=== PATIENT | male | born 1980 | race Caucasian/White ===

== ENCOUNTER 2018-12-20 20:23 | Emergency (ER) | payer MEDICAID ==
[~2018-12-20] VITALS: Ht 167.6 cm; Wt 75.0 kg
[2018-12-20] MEDS ORDERED: CLINDAMYCIN 600 MG in DEXTROSE 5% WATER 50 ML IV ONE (21:15)
[2018-12-20] MEDS ORDERED: KETOROLAC 30MG/ML VIAL IV ONE (21:30)
[2018-12-20] MEDS ORDERED: HYDROCODONE/ACETAMINOPHEN 5/325MG TABLET PO ONE (21:30)
[2018-12-20] MEDS ORDERED: CLINDAMYCIN 600 MG in DEXTROSE 5% WATER 50 ML IV NR (22:00)
[2018-12-20 23:34] VITALS: BP 97/59
== END 2018-12-20 23:49 | disposition home or self-care (01) ==
LOC: ER 20:23
DX: T25.112A Burn of first degree of left ankle, initial encounter (principal); T79.8XXA Other early complications of trauma, initial encounter; L03.116 Cellulitis of left lower limb; X19.XXXA Contact with other heat and hot substances, initial encounter; Y93.89 Activity, other specified; Y92.018 Other place in single-family (private) house as the place of occurrence of the external cause
CPT/HCPCS: 96365; 96375; 99283; J1885; J3490; J7060; Z7610

== ENCOUNTER 2021-04-10 08:13 | Emergency (ER) | payer MEDICAID ==
[~2021-04-10] VITALS: Ht 167.6 cm; Wt 77.0 kg
[2021-04-10] MEDS ORDERED: IBUPROFEN 600MG TABLET PO ONE (08:45)
[2021-04-10] MEDS ORDERED: NAP5EC MT (09:27)
[2021-04-10 10:33] VITALS: BP 125/79
== END 2021-04-10 10:39 | disposition home or self-care (01) ==
LOC: ER 08:13
DX: S80.02XA Contusion of left knee, initial encounter (principal); F12.10 Cannabis abuse, uncomplicated; X58.XXXA Exposure to other specified factors, initial encounter; Y93.89 Activity, other specified; Y92.89 Other specified places as the place of occurrence of the external cause; Y99.8 Other external cause status
CPT/HCPCS: 73562; 99283

== ENCOUNTER 2021-04-14 08:41 | Emergency (ER) | payer MEDICAID ==
[~2021-04-14] VITALS: Ht 167.6 cm; Wt 77.0 kg
[~2021-04-14 08:41] MED LIST: NAP5EC MT
[2021-04-14 09:23] VITALS: BP 125/76
== END 2021-04-14 09:24 | disposition home or self-care (01) ==
LOC: ER 08:41
DX: T18.9XXA Foreign body of alimentary tract, part unspecified, initial encounter (principal); X58.XXXA Exposure to other specified factors, initial encounter; Y93.89 Activity, other specified; Y92.89 Other specified places as the place of occurrence of the external cause; Y99.8 Other external cause status
CPT/HCPCS: 99281

== ENCOUNTER 2021-11-18 06:58 | Emergency (ER) | payer MEDICAID ==
[~2021-11-18] VITALS: Ht 167.6 cm; Wt 72.3 kg
[2021-11-18 07:02] VITALS: BP 160/107
[2021-11-18] MEDS ORDERED: MORPHINE SULFATE 4 MG/ML CPJ (NOT FOR IM USE) IV STA (09:58)
[2021-11-18] MEDS ORDERED: FAMOTIDINE 20MG/2ML VIAL IV STA (09:58)
[2021-11-18] MEDS ORDERED: ONDANSETRON HCL 4MG/2ML INJ IV STA (09:58)
[2021-11-18] MEDS ORDERED: SODIUM CHLORIDE 0.9% 1,000 ML IV ONE (10:00)
[2021-11-18 11:14] LABS: BASOPHILS % 0.5 % (0.0-2.0); EOSINOPHILS % 1.1 % (0.0-5.0); HEMATOCRIT. 49.1 % (42.0-52.0); HEMOGLOBIN. 16.7 g/dL (14.0-18.0); LYMPHOCYTES % 27.3 % (20.0-50.0); MEAN CORPUSCULAR HEMOGLOBIN 31.3 pg (28.0-32.0); MEAN CORPUSCULAR VOLUME 92.2 fL (80.0-94.0); MEAN PLATELET VOLUME 9.4 fl (7.4-10.4); MONOCYTES % 8.1 % (2.0-8.0); PLATELET 212 x1000/uL (130-400); RED BLOOD CELL COUNT 5.32 mill/uL (4.7-6.1); RED CELL DISTRIBUTION WIDTH 13.6 % (11.6-14.6)
[2021-11-18 11:24] LABS: CHLORIDE 107 mEq/L (98-107)
[2021-11-18 11:25] LABS: CLARITY URINE TURBID (CLEAR); COLOR URINE YELLOW (YELLOW); KETONES URINE 4+ (NEGATIVE); LEUKOCYTE ESTERASE URINE TRACE (NEGATIVE); NITRITE URINE NEGATIVE (NEGATIVE); OCCULT BLOOD URINE NEGATIVE (NEGATIVE); PH URINE 8.5 (4.5-8.0); PROTEIN URINE 1+ (NEGATIVE)
[2021-11-18 11:31] LABS: ETHANOL BLOOD < 10 mg/dL
[2021-11-18 12:03] LABS: *AMPHETAMINES SCREEN URINE NEGATIVE (NEGATIVE); *BARBITURATES SCREEN URINE NEGATIVE (NEGATIVE); *BENZODIAZEPINES SCREEN URINE NEGATIVE (NEGATIVE); *COCAINE SCREEN URINE NEGATIVE (NEGATIVE); CANNABINOID URINE SCREEN PRESUMTIVE POSITIVE (NEGATIVE); METHADONE URINE SCREEN NEGATIVE (NEGATIVE); OPIATES URINE SCREEN NEGATIVE (NEGATIVE); PHENCYCLIDINE URINE SCREEN NEGATIVE (NEGATIVE)
[2021-11-18] MEDS ORDERED: SUCR1TAB MT (13:03)
[2021-11-18] MEDS ORDERED: OMEP20CA14 MT (13:03)
[2021-11-18] MEDS ORDERED: ONDA4TAB11 PO (13:03)
== END 2021-11-18 13:27 | disposition home or self-care (01) ==
LOC: ER 06:58
DX: R10.13 Epigastric pain (principal); E86.0 Dehydration; I10 Essential (primary) hypertension; F12.10 Cannabis abuse, uncomplicated; Z87.19 Personal history of other diseases of the digestive system
CPT/HCPCS: 36415; 74176; 80053; 80305; 80320; 81003; 83690; 85025; 93005; 96361; 96374; 96375; 99285; J2270; J2405; J3490; J7030; G0480

== ENCOUNTER 2024-02-04 15:29 | Emergency (ER) | payer MEDICAID ==
[~2024-02-04] VITALS: Ht 167.6 cm; Wt 79.3 kg
[~2024-02-04 15:29] MED LIST changes: -NAP5EC MT; +NAPR-1495 MT; +OMEP20CA14 MT; +ONDA-239 PO; +SUCR1TAB MT
[2024-02-04 17:20] VITALS: TEMP 98.1
[2024-02-04] MEDS: ACETAMINOPHEN 325MG TABLET PO ONE (17:20)
[2024-02-04] MEDS ORDERED: IBUP-2029 MT (17:59)
[2024-02-04 18:12] VITALS: BP 135/89; PULSE 78; RESP 19; O2SAT 97
== END 2024-02-04 18:13 | disposition home or self-care (01) ==
LOC: ER 15:29
DX: R51.9 Headache, unspecified (principal); H57.12 Ocular pain, left eye; F12.10 Cannabis abuse, uncomplicated; E78.00 Pure hypercholesterolemia, unspecified; Z79.899 Other long term (current) drug therapy; Z98.890 Other specified postprocedural states
CPT/HCPCS: 70486; 99284

== ENCOUNTER 2024-04-23 19:16 | Emergency (ER) | payer MEDICAID ==
[~2024-04-23 19:16] MED LIST changes: +IBUP-2029 MT
[2024-04-23 19:27] VITALS: PULSE 76; RESP 16; O2SAT 100
== END 2024-04-23 23:32 | disposition left against medical advice (07) ==
LOC: ER 19:23
DX: R10.9 Unspecified abdominal pain (principal); Z53.21 Procedure and treatment not carried out due to patient leaving prior to being seen by health care provider